=== PATIENT | male | born 1970 | race Caucasian/White ===

== ENCOUNTER 2018-01-30 21:04 | Emergency (ER) | payer MEDICAID ==
[~2018-01-30] VITALS: Ht 165.1 cm; Wt 110.2 kg
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
[2018-01-30] MEDS ORDERED: LORazepam 1mg tab ORAL ONE (21:15)
[2018-01-31] VITALS: BP 136/78
[2018-01-31 02:00] VITALS: BP 131/64
[2018-01-31] MEDS ORDERED: LORazepam 1mg tab ORAL ONE (03:00)
[2018-01-31 04:05] VITALS: BP 139/73
== END 2018-01-31 05:00 | disposition home or self-care (01) ==
LOC: EDBD 21:04 → EMR 21:18
DX: F15.10 Other stimulant abuse, uncomplicated (principal); F22 Delusional disorders; F43.10 Post-traumatic stress disorder, unspecified
CPT/HCPCS: 99283